=== PATIENT | male | born 1955 | race Caucasian/White ===

== ENCOUNTER 2021-03-31 00:53 | Emergency (ER) | payer OTHER, MEDICAID ==
[~2021-03-31] VITALS: Ht 182.9 cm; Wt 102.1 kg
--- NOTE | 2021-03-31 00:53 | NUR ---
PT JOSELITO ALEJANDRO, PREBOOK. TAKEN TO CHAIR
[2021-03-31 00:57] VITALS: BP 139/89
--- NOTE | 2021-03-31 01:14 | NUR ---
Dr. Pang examining patient.
[2021-03-31 01:29] VITALS: BP 139/89
--- NOTE | 2021-03-31 01:30 | NUR ---
PATIENT BIB [employer]. PATIENT EXAMINED BY DR. MAXWELL. PATIENT MEDICALLY CLEARED AND RELEASED IN CUSTODY IN STABLE CONDITION. ORIGINAL PRE-BOOK FORM GIVEN TO OFFICER NANI.
== END 2021-03-31 01:30 ==
LOC: MED 00:53
DX: Z02.89 Encounter for other administrative examinations (principal)
CPT/HCPCS: 99283